=== PATIENT | female | born 1965 | race Caucasian/White ===

== ENCOUNTER → 2016-05-23 | Outpatient (CLI) | payer OTHER ==
--- NOTE | 2016-05-23 16:54 | BD ---
EXAMINATION TYPE: MG DEXA axial skeleton. DATE OF EXAM: 05/23/2016 10:05 AM COMPARISON: NONE CLINICAL HISTORY: 50-year-old female post menopausal Height: 5'2 Weight: 115 FRAX RISK QUESTIONS: Alcohol (3 or more units per day): no Family History (Parent hip fracture): no Glucocorticoids (More than 3mos): no (Ex: prednisone, prednisolone, methylprednisolone, dexamethasone, and hydrocortisone). History of Fracture in Adulthood: yes Secondary Osteoporosis: 1. Type 1 Diabetes: no 2. Hyperthyroidism: no 3. Menopause before 45: no 4. Malnutrition: no 5. Chronic liver disease: no Rheumatoid Arthritis: no Current Tobacco Use: yes RISK FACTORS HISTORY OF: Smoke tobacco: Diet low in dairy products/other sources of calcium: Postmenopausal woman: MEDICATIONS: Additional Medications: Additional History: post menopausal EXAM MEASUREMENTS: Bone mineral densitometry was performed using the [employer]. Bone mineral density as measured about the Lumbar spine is: ----- L1-L4(G/cm2): 0.975 T Score Values are as follows: ----- L2: -1.1 ----- L3: -2.0 ----- L4: -2.4 ----- L1-L4: -1.7 Bone mineral density about the R hip (g/cm2): 0.897 Bone mineral density about the L hip (g/cm2): 0.898 T Score values are as follows: -----R Neck: -1.0 -----L Neck: -1.0 -----R Intertrochanter: -1.9 -----L Intertrochanter: -1.8 IMPRESSION: Osteopenia as indicated by T score values in the lumbar spine and both hips. There is slightly increased risk of fracture and the patient may be considered for treatment. Re-Screen 2-5 years. NOTE: T-SCORE=SD OF THE YOUNG ADULT MEAN.
--- NOTE | 2016-05-26 09:54 | MM ---
Reason for exam: screening (asymptomatic). Last mammogram was performed 6 years and 7 months ago. History: Patient is postmenopausal. Physical Findings: A clinical breast exam by your physician is recommended on an annual basis and results should be correlated with mammographic findings. MG Screening Mammo w CAD Bilateral CC and MLO view(s) were taken. Prior study comparison: October 28, 2009, mammogram, performed at [facility]. The breast tissue is heterogeneously dense. This may lower the sensitivity of mammography. There is no discrete abnormality. No significant changes when compared with prior studies. ASSESSMENT: Negative, BI-RAD 1 RECOMMENDATION: Routine screening mammogram of both breasts in 1 year.
== END | disposition home or self-care (01) ==
LOC: RADMAMWWP 09:36
PROVIDERS: ATTEND Family Medicine
DX: Z12.31 Encounter for screening mammogram for malignant neoplasm of breast (principal); M85.88 Other specified disorders of bone density and structure, other site; Z78.0 Asymptomatic menopausal state
CPT/HCPCS: 77080; G0202